=== PATIENT | female | born 1985 ===

== ENCOUNTER 2017-03-17 19:06 | Emergency (ER) | payer OTHER ==
--- NOTE | 2017-03-17 20:35 | C.PDOC ---
History Of Present Illness 31 yr old female with , LMP February 03, 2017, presents to the ER with complaints of intermittent lower abdominal cramping, associated with intermittent scant vaginal spotting for the past 4 days. Patient denies fever, chills, chest pain, SOB, vomiting, dysuria, hematuria, vaginal discharge, back pain, denies any other active complaints. Time Seen by Provider: 03/17/17 19:54 Chief Complaint (Nursing): Female Genitourinary History Per: Patient History/Exam Limitations: no limitations Onset/Duration Of Symptoms: Days (4) Current Symptoms Are (Timing): Still Present Past Medical History Reviewed: Historical Data, Nursing Documentation, Vital Signs Vital Signs: Last Vital Signs Temp 98.7 F 03/17/17 19:31 Pulse 93 H 03/17/17 19:31 Resp 20 03/17/17 19:31 BP Pulse Ox 99 03/17/17 21:24 Family History: States: No Known Family Hx - Social History Hx Alcohol Use: No Hx Substance Use: No - Immunization History Hx Tetanus Toxoid Vaccination: No Hx Influenza Vaccination: No Hx Pneumococcal Vaccination: No Review Of Systems Except As Marked, All Systems Reviewed And Found Negative. Constitutional: Negative for: Fever, Chills Cardiovascular: Negative for: Chest Pain Respiratory: Negative for: Shortness of Breath Gastrointestinal: Positive for: Abdominal Pain (Lower abdominal cramping ). Negative for: Nausea, Vomiting Genitourinary: Positive for: Vaginal Bleeding (Scant spotting.). Negative for: Dysuria Neurological: Negative for: Weakness, Numbness Physical Exam - Physical Exam Appears: Well, Non-toxic, No Acute Distress Skin: Normal Color, Warm, Dry, No Rash Eye(s): bilateral: PERRL Nose: Normal Throat: Normal, No Erythema, No Exudate, No Drooling Neck: Supple Cardiovascular: Rhythm Regular Respiratory: Normal Breath Sounds, No Stridor, No Wheezing Gastrointestinal/Abdominal: Soft, No Tenderness, No Distention, No Guarding Back: No CVA Tenderness Extremity: No Pedal Edema Neurological/Psych: Oriented x3, Normal Speech, Normal Motor, Normal Sensation, Normal Reflexes ED Course And Treatment - Laboratory Results Result Diagrams: 03/17/17 20:56 O2 Sat by Pulse Oximetry: 99 Pulse Ox Interpretation: Normal - CT Scan/US Pelvic US Other Rad Studies (CT/US): Radiology Report Reviewed CT/US Interpretation: EXAM: US , Transabdominal and Transvaginal. CLINICAL HISTORY: 31 years old, female; Pain; Other: Vag bleed; Gestational age or lmp: 01-30-2017; ;. Additional info: Vaginal bleeding, cramping pain. TECHNIQUE: Real-time transvaginal obstetrical ultrasound of the maternal pelvis and a first trimester . with image documentation. Transvaginal imaging was used for better evaluation of the fetus and. adnexa. COMPARISON: No relevant prior studies available. FINDINGS: There is a gestational sac within the endometrial canal. A pole and yolk sac are seen within the. gestational sac. [place] rump length measurement correlates with an estimated gestational age of 6. weeks 1 day. cardiac activity is seen with a heart rate of 119 beats per minute. Evidence of. small subchorionic hemorrhage measured at 1.3 x 0.4 x 0.4 cm. 2 cm right ovarian cyst. Bilateral ovarian flow. Free fluid in the cul-de-sac. IMPRESSION: Single live IUP. Evidence of small subchorionic hemorrhage. 2 cm right ovarian cyst. Free fluid in the cul-de-sac. Followup imaging recommended. Thank you for allowing us to participate in the care of your patient. Dictated and Authenticated by: Shannon Lozano MD. 03/17/2017 10:52 PM Eastern Time ([place] & [place]) Progress Note: On re-eavluation, pt is afebrile, hemodynamicalys table. NOn- toxic. Tolerate Po well in ED. ENT: no acute finidngs. ABd: benign. Back: (- ) CVA tenderness. Diagnostics review and appears noraml. Beta quant 29732. Blood type: A positive, antibody negative. US results review, (+) IUP, live, (+ ) FHR, (+) small subchorionic hemorrhage. Beta quant is consistent with US estimated age of 5w6d. Results review and discussed with pt. ref. to F/U with OB in 1-2 days for re-eavl. return to ED if any worsening or new changes. Medical Decision Making Medical Decision Making: PLAN: * US - Transvaginal * CBC * BETA Quant * Urinalysis Disposition Counseled Patient/Family Regarding: Studies Performed, Diagnosis, Need For Followup - Disposition [facility] Disposition: HOME/ ROUTINE Disposition Time: 22:54 Condition: STABLE Additional Instructions: Pelvic rest for 1-2 weeks vitamins Follow up with OB in 2-3 days for re-evaluation. Return to ED if any worsening or new changes. Prescriptions: Multivit/Folic Acid/I [ Plus] 1 tab PO DAILY #30 tab Instructions: Threatened Miscarriage (ED) - Clinical Impression Clinical Impression: Threatened - PA / [employer]IST / Resident Statement MD/DO has reviewed & agrees with the documentation as recorded. - Scribe Statement The provider has reviewed the documentation as recorded by the Scribe Leslie Sparrow All medical record entries made by the Coyibgregorio were at my direction and personally dictated by me. I have reviewed the chart and agree that the record accurately reflects my personal performance of the history, physical exam, medical decision making, and the department course for this patient. I have also personally directed, reviewed, and agree with the discharge instructions and disposition.
[2017-03-17 20:38] LABS: RBC URINE 3 /hpf (0-3); URINE BACTERIA FEW (<OCC); URINE BILIRUBIN NEGATIVE (NEGATIVE); URINE BLOOD NEGATIVE (NEGATIVE); URINE COLOR Yellow (YELLOW); URINE GLUCOSE (UA) NORMAL (Normal); URINE HYALINE CAST 0-2 /lpf (0-2); URINE KETONE 1+ mg/dL (NEGATIVE); URINE LEUKOCYTE ESTERASE TRACE Leu/uL (Negative); URINE PROTEIN 1+ mg/dL (NEGATIVE); URINE UROBILINOGEN NORMAL mg/dL (0.2-1.0); WBC URINE 5 /hpf (0-5)
[2017-03-17 21:00] LABS: BASO # 0.1 K/uL (0.0-0.2); BASO % 0.5 % (0.0-2.0); EOS # 0.2 K/uL (0.0-0.7); EOS % 2.2 % (0.0-4.0); HEMATOCRIT 35.8 % (34.0-47.0); LYMPH # 1.4 K/uL (1.0-4.3); LYMPH % 13.5 % (20.0-40.0); MEAN CELL VOLUME 81.6 fL (81.0-99.0); MEAN CORPUSCULAR HEMOGLOBIN 26.6 pg (27.0-31.0); MEAN CORPUSCULAR HGB CONC 32.6 g/dL (33.0-37.0); MEAN PLATELET VOLUME 9.6 fL (7.2-11.7); MONO # 0.6 K/uL (0.0-0.8); MONO % 6.2 % (0.0-10.0); RED CELL DISTRIBUTION WIDTH 14.3 % (11.5-14.5)
[2017-03-17 23:12] VITALS: BP 110/72; PULSE 70; RESP 18; TEMP 97.8; O2SAT 100
--- NOTE | 2017-03-18 14:36 | US ---
PROCEDURE: OB Pelvic Ultrasound HISTORY: vaginal bleeding, cramping pain. LMP: 01/30/2017 COMPARISON: None available. FINDINGS: UTERUS: Anteverted uterus. Normal-size yolk sac noted measuring 0.3 cm. Gestational sac: Single intrauterine gestation. Heart rate: 119 bpm. [place]-rump length measures 0.4 cm corresponding to a gestational age of 6 weeks 1 day. Subchorionic hemorrhage measuring 1.3 x 0.4 x 0.4 cm. Date of delivery (Ultrasound estimated) : 11/10/2017 CERVIX: Closed and measures 3.7 Cm. RIGHT OVARY: Measures 4.2 x 2.4 x 3.1 cm. Cyst noted measuring 2 cm. Normal flow. LEFT OVARY: Measures 3 x 1.7 x 2.1 cm. Sonographically unremarkable. Normal flow. FREE FLUID: Small amount of pelvic free fluid noted, likely physiologic. OTHER FINDINGS: None. IMPRESSION: Single live intrauterine gestation corresponding to a gestational age of 6 weeks 1 day with estimated date of delivery of 11/10/2017. Subchorionic hemorrhage measuring 1.3 cm. Recommend followup pelvic ultrasound. Right ovarian 2 cm cyst. Preliminary impression was provided by [facility]. Findings are concordant.
== END 2017-03-17 23:12 | disposition home or self-care (01) ==
LOC: C.ER 19:06
DX: O20.0 Threatened abortion (principal); Z3A.01 Less than 8 weeks gestation of pregnancy

== ENCOUNTER 2017-07-07 18:10 | Emergency (ER) | payer OTHER ==
[2017-07-07 20:00] LABS: RBC URINE 6 /hpf (0-3); URINE BACTERIA RARE (<OCC); URINE BILIRUBIN NEGATIVE (NEGATIVE); URINE BLOOD 1+ (NEGATIVE); URINE COLOR Yellow (YELLOW); URINE GLUCOSE (UA) NORMAL (Normal); URINE KETONE NEGATIVE (NEGATIVE); URINE LEUKOCYTE ESTERASE 3+ Leu/uL (Negative); URINE PROTEIN NEGATIVE (NEGATIVE); URINE UROBILINOGEN NORMAL mg/dL (0.2-1.0); WBC URINE 23 /hpf (0-5)
--- NOTE | 2017-07-07 20:55 | OBDCSUM ---
Datetime: 07/07/2017 20:53 Discharged to, Provider: Home Follow up at, Provider: 2-3days Follow up in weeks, Provider: dr Christensen Discharge Comment, Provider: dc home flagyl 5000 mg bid po hyration no sex f/u in 2-[address] Blanco Discharge Diagnosis Prov Other: 22 weeks vaginitis
--- NOTE | 2017-07-07 20:55 | OBHP ---
Datetime: 07/07/2017 20:51 Admit Comment, IP Provider: pt was seen at bed side. feels good ua 3+le 1+blood spec yellowish whitsh disc, no cmt, closed plan dc home flagyl 5000 mg bid po hyration no sex f/u in 2-[address] Blanco FHR - Baseline A Provider: 140 Contraction Comments Provider: none Vital Signs Provider: Reviewed; Within Normal Limits NICHD Variability Prov Fetus A: Moderate 6-25bpm NICHD Accel Fetus A IP Provider: [id number] FHR Category Provider Fetus A: Category I Datetime: 07/07/2017 19:27 IP Adm Impression: , intrauterine IP Chief Complaint Other: Vaginal spotting Comments, ACOG Physical Exam: VS: 118/66 73 Gen: AAOx3, NAD Abd: Soft, gravid Ext: No clubbing, cyanosis, edema SVE: closed/thick/high; no CMT SSE: no active bleeding, +yellowish/whitish vaginal discharge EFM: 145, variability appropriate for gestational age, +acccels, - decels CTX: none EGA AdmitDate IP: 22.4 IP Chief Complaint: Other
[2017-07-08 01:42] VITALS: BP 120/71; PULSE 68; RESP 18; TEMP 97.8
== END 2017-07-07 21:10 | disposition home or self-care (01) ==
LOC: C.EROB 18:10
DX: O23.592 Infection of other part of genital tract in pregnancy, second trimester (principal); N76.0 Acute vaginitis; Z3A.22 22 weeks gestation of pregnancy